=== PATIENT | male | born 1970 | race Caucasian/White ===

== ENCOUNTER 2021-03-21 14:23 | Emergency (ER) | payer MEDICAID ==
[~2021-03-21] VITALS: Ht 170.2 cm; Wt 81.6 kg
--- NOTE | 2021-03-21 14:35 | NUR ---
Dr Abarca at the bedside for MSE.
[2021-03-21] MEDS ORDERED: IBUPROFEN 800 MG TABLET PO ONE (14:45)
[2021-03-21] MEDS ORDERED: GLIP5TAB13 PO (14:46)
[2021-03-21] MEDS ORDERED: METF-440 PO (14:46)
[2021-03-21] MEDS ORDERED: IBUPROFEN 800 MG TABLET ONE (14:53)
[2021-03-21] MEDS ORDERED: HYDR-4209 PO (15:06)
[2021-03-21 15:41] VITALS: BP 110/79
--- NOTE | 2021-03-21 15:41 | NUR ---
Patient discharged to home in stable condition. Written and verbal after care instructions given. Patient verbalizes understanding of instructions. Stressed follow up or return to ER for worsening s/s.
== END 2021-03-21 15:42 | disposition home or self-care (01) ==
LOC: ER 14:23
DX: S92.502A Displaced unspecified fracture of left lesser toe(s), initial encounter for closed fracture (principal); W22.01XA Walked into wall, initial encounter; Y93.01 Activity, walking, marching and hiking; Y92.019 Unspecified place in single-family (private) house as the place of occurrence of the external cause; E11.9 Type 2 diabetes mellitus without complications; Z79.84 Long term (current) use of oral hypoglycemic drugs
CPT/HCPCS: 73630; A4663